=== PATIENT | female | born 1935 | race Caucasian/White ===

== ENCOUNTER 2016-12-17 23:51 | Emergency (ER) | payer OTHER ==
[2016-12-17 22:36] LABS: BASOPHILS 0.3 %; BASOPHILS ABSOLUTE 0.02 10/3/uL (0.0-0.16); EOSINOPHILS 4.3 %; EOSINOPHILS ABSOLUTE 0.27 10/3/uL (0.0-0.53); HEMATOCRIT 33.1 % (36.0-48.0); IMMATURE GRANULOCYTES 0.3 %; IMMATURE GRANULOCYTES ABSOLUTE 0.02 10/3/uL (0.0-0.11); LYMPHOCYTES 26.3 %; LYMPHOCYTES ABSOLUTE 1.66 10/3/uL (0.67-4.30); MANUAL DIFF NO %; MEAN CORPUS HGB CONC 33.2 g/dL (32.0-36.0); MEAN CORPUSCULAR HEMOGLOB 28.3 pg (26.0-34.0); MEAN CORPUSCULAR VOLUME 85.1 fL (80-100); MONOCYTES 7.8 %; MONOCYTES ABSOLUTE 0.49 10/3/uL (0.21-1.20); NEUTROPHILS ABSOLUTE 3.86 10/3/uL (2.02-8.40); PLATELET COUNT 204 10/3/uL (150-400); RBC DISTRIBUTION WIDTH 13.6 % (12.0-16.0); RED CELL COUNT 3.89 10/6/uL (4.0-5.6); WHITE BLOOD CELLS 6.3 10/3/uL (4.5-10.5)
[2016-12-17 22:53] LABS: BUN (BLOOD UREA NITROGEN) 16 MG/DL (6-23); CHEST PAIN PROFILE TAT 0 Hrs 21 Mins; CHLORIDE, SERUM 107 MMOL/L (96-112); GFR AFRICAN AMERICAN 42 ML/MIN (>=60); GFR NON AFRICAN AMERICAN 36 ML/MIN (>=60); GLUCOSE, SERUM 108 MG/DL (60-99); SODIUM, SERUM 141 MMOL/L (135-148); TROPONIN I <0.02 NG/ML (<0.05)
[2016-12-17 22:54] LABS: CO2 (CARBON DIOXIDE) 27 MMOL/L (24-34); CREATININE 1.38 MG/DL (0.55-1.02); POTASSIUM, SERUM 3.8 MMOL/L (3.5-5.3)
[2016-12-17 23:02] LABS: PARTIAL THROMBO TIME 29.8 SEC (22.5-37.2); PROTIME (NOT ORD) 13.2 SEC (12.0-14.5)
[2016-12-17 23:21] LABS: ALBUMIN 3.6 G/DL (3.5-5.0); SGOT(AST) 16 U/L (5-40); SGPT(ALT) 21 U/L (5-65); TOTAL BILIRUBIN 0.2 MG/DL (0-1.2); TOTAL PROTEIN 7.1 G/DL (6.0-8.5)
[2016-12-17 23:22] LABS: ALKALINE PHOSPHATASE 108 U/L (45-117); DIRECT BILIRUBIN < 0.1 MG/DL (0.0-0.4); INDIRECT BILIRUBIN(NOT ORDER) 0.1 MG/DL (0.1-0.9)
[~2016-12-17 23:51] MED LIST: ACET500CAP PO; ACIPHEX PO; ALLEGRA180 PO; AMB10 PO; AMB5 PO; AMILORID5B PO; AMITIZA8 MCG PO; ASAB PO; BACTROINT TOP; BUM1 PO; CITRACAL PO; CLOBETASOL0.051 EX; CLOBETASOL0.051 TOP; COZAAR100 MG PO; CRESTOR10 PO; EXFORGE1 TA3 PO; FLEX PO; FLOVENT110 INH; FOSAMAX70 MG PO; IMDUR30 PO; ISOSORB DIN30 MG PO; KLOR-CON 1010 MEQ PO; KURIC2 % TOP; L40 PO; LACHYDRIN LOT225 GM EX; LEVOTHYROXIN137 MCG PO; LIDODERM T; LIDODERM TOP; LORTAB10 PO; MAGOX4 PO; MAX25 PO; MCZ125 PO; MIRAPEX5 PO; MYCOSCROI TOP; NIZORALCRM TOP; NORCO1 TAB PO; OXYCOD PO; OXYCON10 PO; OXYCON80 PO; PR25 PO; PROAIR HFA INH; PROTONIX PO; REFRESH OPH; SINGULAIR1 PO; SPIRO25 PO; SYN125 PO; TOPROL XL200 MG PO; ULORIC40 MG PO; VITD PO; XANAX1 MG PO; XENADERM60 GM EX; Z10 PO; Z100 PO; Z300 PO; ZETIA PO; ZOL100 PO
[2016-12-18 00:38] LABS: ASCORBIC ACID (UR NOT ORDER) NEG (NEG); BILIRUBIN, URINE NEGATIVE (NEG); ER URINALYSIS TAT 0 Hrs 00 Mins; KETONE, URINE NEGATIVE (NEG); LEUKOCYTE ESTERASE(NOT OR LARGE (NEG); WBC (NOT ORDERED) (RFLEX) 13 (0-5)
[2016-12-18 00:39] LABS: NITRITE (URINE) POS (NEG)
== END 2016-12-18 03:11 | disposition home or self-care (01) ==
LOC: ER 23:51
PROVIDERS: Nurse Practitioner
DX: N39.0 Urinary tract infection, site not specified (principal); R10.13 Epigastric pain; R10.32 Left lower quadrant pain; D64.9 Anemia, unspecified; J44.9 Chronic obstructive pulmonary disease, unspecified; I10 Essential (primary) hypertension; F32.9 Major depressive disorder, single episode, unspecified; F41.9 Anxiety disorder, unspecified; G25.81 Restless legs syndrome; Z86.73 Personal history of transient ischemic attack (TIA), and cerebral infarction without residual deficits; Z90.710 Acquired absence of both cervix and uterus; Z88.0 Allergy status to penicillin; Z88.8 Allergy status to other drugs, medicaments and biological substances; Z88.1 Allergy status to other antibiotic agents; Z91.09 Other allergy status, other than to drugs and biological substances; Z79.899 Other long term (current) drug therapy
CPT/HCPCS: 71010; 74176; 80048; 80076; 81001; 83690; 83735; 84484; 85025; 85610; 85730; 87077; 87086; 87186; 93005; 96374; 99285

== ENCOUNTER 2017-01-27 11:11 | Inpatient (IN) | payer OTHER ==
--- NOTE | ~2017-01-27 | HP ---
History And Physical [place] [id number] [facility] [place] [place]. [address] NAME: MORENA KIRKPATRICK : 39 STATUS : ADM IN [facility]#: [id number] AGE: 81 ADM/REG DATE : 01/27/17 MR#: [id number] REPORT SERV DATE: 01/27/17 DICTATED BY: LALY ALCANTARA DATE: 01/27/17 REPORT STATUS : Draft TRANSCRIBED BY: MODL DATE: 01/27/17 DATE OF ADMISSION: 01/27/2017 CHIEF COMPLAINT: Abdominal pain and weakness, these starting yesterday. HISTORY OF PRESENT ILLNESS: This is a very pleasant 81-year-old female. She does have past medical history significant for hypertension, anemia of chronic disease, history of hypothyroidism, history of gout, hyperlipidemia, anxiety and depression, irritable bowel syndrome, history of restless leg syndrome, also history of COPD and asthma, essential tremor, history of degenerative joint disease, osteoarthritis, vitamin D deficiency, who has been presenting to [facility] with complaints of abdominal pain, sharp starting yesterday. The patient has history of irritable bowel syndrome and she has alternating periods of diarrhea and constipation. She has been denying any chest pain or increasing shortness of breath. No fevers or chills, but she felt weak, she did not feel good, although she did not think she had any constipation, she felt that she has loose bowel movements a couple of days ago. Now she came to [facility] emergency room, she has been evaluated. She underwent a V/Q. The patient denied any chest pain or increasing shortness of breath. No cough. No sputum production. She said that she had frequent urination, but no high amounts. She did not have any nausea or vomiting. No diarrhea or constipation, but her abdominal pain was sometimes sharp and was radiating to the back. She has not had any recent hospitalization nor she has had any sick contacts. She has been evaluated in the emergency room and Hospitalist Service has been asked for admission, further evaluation, and treatment. PAST MEDICAL HISTORY: Significant for hypertension, history of restless legs syndrome, depression, anxiety, hypothyroidism, hyperlipidemia, history of gout, history of degenerative joint disease, osteoarthritis, depression with anxiety, irritable bowel syndrome, essential tremor, degenerative joint disease, osteoarthritis, and vitamin D deficiency, and anemia of chronic disease. PAST SURGICAL HISTORY: Would include cholecystectomy, bilateral knee replacement, back surgery, left foot surgery, right elbow surgery. SOCIAL HISTORY: She denies tobacco, alcohol, or IV drugs. ALLERGIES: SHE IS ALLERGIC TO DICLOFENAC, PENICILLIN, TENORMIN, ADHESIVE TAPE, LEVAQUIN, AND NSAIDS. MEDICATIONS: Listed as her home medications include albuterol, Xanax, amlodipine, valsartan, artificial tears, aspirin, clobetasol p.r.n., Flexeril, Uloric, Flovent, [place], Imdur, Synthroid, Lidoderm patch, magnesium oxide, Toprol-XL, Singulair, Zofran, Protonix, potassium chloride, Mirapex, Phenergan, Crestor, Zoloft, and Zinaderm ointment, as well as Ambien. REVIEW OF SYSTEMS: A 14-point review of systems has been obtained and pertinent positive has been listed into History And Physical [address] [address] NAME: MORENA KIRKPATRICK : 39 STATUS : ADM IN [facility]#: [id number] AGE: 81 ADM/REG DATE : 01/27/17 MR#: [id number] REPORT SERV DATE: 01/27/17 DICTATED BY: LALY ALCANTARA DATE: 01/27/17 REPORT STATUS : Draft TRANSCRIBED BY: SHAYNE DATE: 01/27/17 the history of present illness. Otherwise, negative except those underlying above. PHYSICAL EXAMINATION: VITAL SIGNS: Currently, the patient is afebrile. Blood pressure 101/50, heart rate 66, respiratory rate 22, saturating 98% on room air. GENERAL: She is a pleasant, somewhat anxious well-developed, well-nourished female, in no acute distress. She is alert and oriented x3. She is nonfocal. She follows all her commands appropriately. Slightly dry mucous membranes. HEENT: Shows pupils equal, round, reactive to light. Extraocular movements intact. No JVD. No lymphadenopathy. No thyromegaly appreciated. CHEST EVAL: Shows bilateral air entry. Clear anteroposterior. Decreased breath sounds bibasilarly. No wheezes, crackles, or rhonchi appreciated. CARDIOVASCULAR: She has regular rate and rhythm. S1, S2 positive. No S3, no S4. No murmurs, rubs, or gallops appreciated. ABDOMEN: Soft, slightly tender on the middle and left lower quadrants, but no guarding, no rebound. EXTREMITIES: No clubbing, cyanosis, or edema. NEUROLOGIC: She is alert and oriented x3. She is nonfocal. She follows all her commands appropriately. LABORATORY DATA: Labs from today include sodium 139, potassium 5.4, chloride 106, CO2 of 25, BUN 27, creatinine 2.02, glucose 105. Her total protein is 6.9, albumin is 4, globulin 2.9, also total bilirubin is 0.4, alkaline phosphatase 93, ALT 20, AST 24. Her troponin I is less than 0.02. Her lipase is 184. Her white count is 7.6, hemoglobin 11.6, hematocrit 36.1, and platelets are 245. The patient's INR is 1.1. Her D-dimer was 0.58. Her UA has been positive for large leukocyte esterase 32 cells, few bacteria. Her urine cultures currently are pending. There is a chest x-ray, portable, performed today showing stable appearance, no acute abnormalities that could be appreciated. There is also a V/Q scan performed in the emergency room show normal lung V/Q scan, and there is a CAT scan of the chest, abdomen, and pelvis without contrast showing bilateral lower lobe atelectasis, old granulomatosis disease, stable mild elevation of the right hemidiaphragm, and fecal stasis with constipation diverticulosis, but no diverticulitis. Status post hysterectomy and cholecystectomy and a soft stable tissue in the left hemipelvis likely representing the left ovary and stable lumbosacral surgical changes with chronic T12 compression fracture, appearing unchanged. ASSESSMENT AND PLAN: This is a very pleasant 81-year-old female with: 1. Abdominal pain with fecal stasis. 2. Urinary tract infection. 3. Acute on likely chronic kidney disease. 4. History of hypertension. 5. Hypothyroidism. 6. Hyperlipidemia. 7. History of the irritable bowel syndrome. 8. Depression with anxiety. History And Physical [address] [address] NAME: MORENA KIRKPATRICK : 39 STATUS : ADM IN [facility]#: [id number] AGE: 81 ADM/REG DATE : 01/27/17 MR#: [id number] REPORT SERV DATE: 01/27/17 DICTATED BY: LALY ALCANTARA DATE: 01/27/17 REPORT STATUS : Draft TRANSCRIBED BY: MODDiana DATE: 01/27/17 9. Restless leg syndrome. 10.History of gout. PLAN: 1. The patient with abdominal pain with fecal stasis. We are going to place her on clear liquid diet and advance as tolerated. Bowel regimen including MiraLAX and Colace. Supportive treatment. 2. Acute on chronic kidney disease. We are going to place a Perla catheter. Strict I's and O's. Strict daily weights. We are going to hold her valsartan. We are going to check a renal ultrasound as well. 3. History of anemia likely of chronic disease. We will check a vitamin B12 and folic acid. 4. Hypothyroidism. We will continue her home medications and check a TSH and a free T4. 5. Depression and anxiety. Continue her home medications. 6. Hypertension. Continue her home medications and p.r.n. hydralazine as needed. We are going to provide reasonable pain, nausea control as well as gastrointestinal and deep venous thrombosis prophylaxis. That has been discussed extensively with the patient. All the questions have been answered in full. Further workup and recommendation pending above. 7. It is worthwhile to note that the patient is going to be by Hospitalist Service. CF/SHAYNE Laly Alcantara M.D. / [id number] CC: Leeanna Magana KATRINA V.
--- NOTE | ~2017-01-27 | DS ---
Discharge Summary [facility] [address] [place]. [address] NAME: MORENA KIRKPATRICK : 39 STATUS : ADM IN [facility]#: [id number] AGE: 81 ADM/REG DATE : 01/27/17 MR#: [id number] REPORT SERV DATE: 01/31/17 DICTATED BY: RICHARD SNOW DATE: 01/31/17 REPORT STATUS : Draft TRANSCRIBED BY: MODL DATE: 01/31/17 ADMISSION DATE: 01/27/2017 DISCHARGE DATE: 01/31/2017 FINAL HOSPITAL DIAGNOSES: 1. Abdominal pain, resolved. 2. History of irritable bowel syndrome. 3. History of hypertension. 4. History of restless legs syndrome. 5. History of anxiety, depression. 6. History of hypothyroidism. CONSULTATIONS: None. PROCEDURES: 1. CT abdomen and pelvis done on the first showing fecal stasis, diverticulosis without diverticulitis, prior cholecystectomy and hysterectomy, 7 mm hemorrhagic cyst in the left kidney. CT of the chest done same date showing old granulomatous disease involving the right lung and the right hilar lymph node, stable elevation mild of the right hemidiaphragm, mild bilateral lower lobe and right upper lobe atelectasis, otherwise no acute pathology appreciated. 2. V/Q scan done on the 1st showing normal lung scan without evidence of PE. 3. X-rays of the chest, spine, and ribs, unremarkable. 4. Renal ultrasound done on the 2nd showing kidneys normal size and configuration. No stones or hydronephrosis. Normal echogenicity of the renal parenchyma, subcentimeter benign-appearing simple cysts in both kidneys, Bosniak type 1. CURRENT PHYSICAL FINDINGS AND HPI: Please see dictated H and P by Dr. Crews. In brief, the patient is a 81-year-old female with above medical history, presented with the complaint of abdominal pain and fatigue. Vital signs at the time of admission, BP was 101/50, subsequent blood pressures were averaging 140s over 60s to 70s. T-max was 99.3. No tachycardia. No significant oxygen desats. LABORATORY DATA: Initial BMP showed a creatinine of 2.02, post rehydration 1.37 and 1.08 respectively. CA 19-9 was checked and 18.0. Ferritin was 289. Iron was 106. Troponin was less than 0.02 x2. A1c was 5.5. Initial white count was 7.6, there was no significant leukocytosis on multiple checks. Hemoglobin and hematocrit were 10 and 31 post hydration. D-dimer was slightly elevated at 0.58. Urinalysis showed 32 wbc's, few bacteria. Subsequent urine culture showed multiple organisms, suspect contamination. HOSPITAL COURSE: The patient was admitted for the above complaints. Home medications were reviewed and she was started on DVT prophylaxis with subcu heparin. IV fluids were administered for the mild dehydration. Cultures were sent for the urine. Additional studies including those noted above to investigate her abdominal pain. She was started on Azactam for the UTI. I assumed her care the following morning, she had ruled out by cardiac enzymes. Her abdominal pain continued despite initiation of bowel movements. A CA-19-9 was Discharge Summary [address] [address] NAME: MORENA KIRKPATRICK : 39 STATUS : ADM IN [facility]#: [id number] AGE: 81 ADM/REG DATE : 01/27/17 MR#: [id number] REPORT SERV DATE: 01/31/17 DICTATED BY: RICHARD SNOW DATE: 01/31/17 REPORT STATUS : Draft TRANSCRIBED BY: SHAYNE DATE: 01/31/17 checked. The following day, her creatinine returned to normal. IV fluids were discontinued and her Perla was discontinued. On further investigation, it seemed her pain was more musculoskeletal as it was positional and reproducible. She was started on prednisone, rib series were done which was negative. T-spine was negative. Her renal ultrasound was negative. On the following hospital day, with her urine culture results back and no further symptoms, her Azactam was discontinued. Her prednisone was titrated up. On re-evaluation the following day, her symptoms had mostly resolved. Her pain was much better and she was comfortable discharging home with followup per PCP. She did want to stay on prednisone, the shorter dose possible, so a 40, 20, 10 taper q.3 days was written. Otherwise, [place]forge 10/320, aspirin 81, Uloric 40, Imdur 30, Synthroid 137, Singulair 10, Toprol-XL 25, Protonix 40, Mirapex 0.5, Zoloft 100, ProAir inhaler two puffs t.i.d., Temovate cream, Crestor 10, Flexeril 5 b.i.d., Flovent, hydrocodone 10/325, potassium 10 b.i.d., Lidoderm, magnesium oxide 400 b.i.d., Zofran, Phenergan, Xanax 1 mg, Xenaderm ointment, Ambien 5, and refresh eye drops. She will schedule follow up with her PCP or coverage in the next several weeks and if her symptoms persist. On the date of discharge, she had no signs or symptoms of DVT in her lower extremities. Her calves were colorful, nontender, nondistended. No erythema. Her D-dimer was felt a false positive. DICTATED BY: Richard Snow M.D. TLF/SHAYNE Richard Snow M.D. / [id number] CC: Leeanna Magana
[2017-01-27 11:32] LABS: BASOPHILS 0.4 %; BASOPHILS ABSOLUTE 0.03 10/3/uL (0.0-0.16); EOSINOPHILS ABSOLUTE 0.38 10/3/uL (0.0-0.53); ER CBC TAT 0 Hrs 08 Mins; HEMATOCRIT 36.1 % (36.0-48.0); HEMOGLOBIN 11.6 g/dL (12.0-16.0); IMMATURE GRANULOCYTES 0.5 %; IMMATURE GRANULOCYTES ABSOLUTE 0.04 10/3/uL (0.0-0.11); LYMPHOCYTES 19.9 %; LYMPHOCYTES ABSOLUTE 1.52 10/3/uL (0.67-4.30); MANUAL DIFF NO %; MEAN CORPUS HGB CONC 32.1 g/dL (32.0-36.0); MEAN PLATELET VOLUME 10.5 fL (9.2-13.0); MONOCYTES 8.4 %; MONOCYTES ABSOLUTE 0.64 10/3/uL (0.21-1.20); NEUTROPHILS 65.8 %; NEUTROPHILS ABSOLUTE 5.03 10/3/uL (2.02-8.40); PLATELET COUNT 245 10/3/uL (150-400); RBC DISTRIBUTION WIDTH 13.4 % (12.0-16.0); RED CELL COUNT 4.15 10/6/uL (4.0-5.6); WHITE BLOOD CELLS 7.6 10/3/uL (4.5-10.5)
[2017-01-27 11:38] LABS: INTERNATIONAL NORMAL RATI 1.1 UNITS (-)
[2017-01-27 11:39] LABS: PARTIAL THROMBO TIME 29.6 SEC (22.5-37.2)
[2017-01-27 11:41] LABS: D-DIMER QUANTITATIVE 0.58 ug/mLFEU (< 0.50)
[2017-01-27 12:23] LABS: A/G RATIO 1.4 (0.7-1.9); CALCIUM, SERUM 9.2 MG/DL (8.5-10.4); CHLORIDE, SERUM 106 MMOL/L (96-112); CO2 (CARBON DIOXIDE) 25 MMOL/L (24-34); GLOBULIN 2.9 G/DL (2.5-4.1); GLUCOSE, SERUM 105 MG/DL (60-99); SGPT(ALT) 20 U/L (5-65); SODIUM, SERUM 139 MMOL/L (135-148); TOTAL BILIRUBIN 0.4 MG/DL (0-1.2); TOTAL PROTEIN 6.9 G/DL (6.0-8.5); TROPONIN I <0.02 NG/ML (<0.05)
[2017-01-27 12:25] LABS: ALKALINE PHOSPHATASE 93 U/L (45-117); BUN (BLOOD UREA NITROGEN) 27 MG/DL (6-23); CREATININE 2.02 MG/DL (0.55-1.02); GFR AFRICAN AMERICAN 27 ML/MIN (>=60); GFR NON AFRICAN AMERICAN 23 ML/MIN (>=60); POTASSIUM, SERUM 5.4 MMOL/L (3.5-5.3); SGOT(AST) 24 U/L (5-40)
[2017-01-27 13:53] LABS: ASCORBIC ACID (UR NOT ORDER) NEG (NEG); BILIRUBIN, URINE NEGATIVE (NEG); ER URINALYSIS TAT 0 Hrs 11 Mins; KETONE, URINE NEGATIVE (NEG); LEUKOCYTE ESTERASE(NOT OR LARGE (NEG); WBC (NOT ORDERED) (RFLEX) 32 (0-5)
[2017-01-27 13:54] LABS: NITRITE (URINE) NEG (NEG)
[2017-01-27] MEDS ORDERED: PROAIR HFA INH (18:04)
[2017-01-27] MEDS ORDERED: EXFORGE1 TA3 PO (18:05)
[2017-01-27] MEDS ORDERED: ASAB PO (18:05)
[2017-01-27] MEDS ORDERED: CRESTOR10 PO (18:06)
[2017-01-27] MEDS ORDERED: TEMOVATE CREAM30 GM TOP (18:06)
[2017-01-27] MEDS ORDERED: FLOVENT110 INH (18:10)
[2017-01-27] MEDS ORDERED: FLEXERIL5 MG PO (18:10)
[2017-01-27] MEDS ORDERED: IMDUR30 PO (18:11)
[2017-01-27] MEDS ORDERED: NORCO1 TAB PO (18:11)
[2017-01-27] MEDS ORDERED: SYNTHROID137 MCG PO (18:12)
[2017-01-27] MEDS ORDERED: KLOR-CON 1010 MEQ PO (18:12)
[2017-01-27] MEDS ORDERED: LIDODERM TOP (18:13)
[2017-01-27] MEDS ORDERED: TOPXL25 PO (18:14)
[2017-01-27] MEDS ORDERED: PROTONIX PO (18:14)
[2017-01-27] MEDS ORDERED: MAGOX4 PO (18:14)
[2017-01-27] MEDS ORDERED: MIRAPEX5 PO (18:15)
[2017-01-27] MEDS ORDERED: ZOFRAN ODT4 MG PO (18:15)
[2017-01-27] MEDS ORDERED: PR25 PO (18:15)
[2017-01-27] MEDS ORDERED: ULORIC40 MG PO (18:16)
[2017-01-27] MEDS ORDERED: ZOL100 PO (18:16)
[2017-01-27] MEDS ORDERED: SINGULAIR1 PO (18:16)
[2017-01-27] MEDS ORDERED: XANAX1 MG PO (18:18)
[2017-01-27] MEDS ORDERED: XENADERM OINTMENT TOP (18:19)
[2017-01-27] MEDS ORDERED: AMB5 PO (18:19)
[2017-01-27] MEDS ORDERED: REFRESH OPH (18:21)
[2017-01-27 23:45] LABS: B NATRIURETIC PEPTIDE (BNP) 80.9 PG/ML (< 100.0)
[2017-01-28 00:03] LABS: ALCOHOL < 10 MG/DL (0); FERRITIN 289 NG/ML (8-252); FOLATE 15.4 NG/ML (>5.2); SALICYLATE < 1.7 MG/DL (-)
[2017-01-28 00:04] LABS: IRON, SERUM 106 MCG/DL (35-150)
[2017-01-28 00:05] LABS: ACETAMINOPHEN LEVEL (TYLENOL) < 2.0 MCG/ML (10.0-20.0); IRON BINDING CAPACITY 358 MCG/DL (225-410)
[2017-01-28 05:08] LABS: BASOPHILS 0.4 %; BASOPHILS ABSOLUTE 0.02 10/3/uL (0.0-0.16); EOSINOPHILS 6.7 %; IMMATURE GRANULOCYTES 0.2 %; IMMATURE GRANULOCYTES ABSOLUTE 0.01 10/3/uL (0.0-0.11); LYMPHOCYTES 28.3 %; LYMPHOCYTES ABSOLUTE 1.27 10/3/uL (0.67-4.30); MEAN CORPUS HGB CONC 32.4 g/dL (32.0-36.0); MEAN CORPUSCULAR HEMOGLOB 27.9 pg (26.0-34.0); MEAN CORPUSCULAR VOLUME 86.3 fL (80-100); MEAN PLATELET VOLUME 10.2 fL (9.2-13.0); MONOCYTES 8.3 %; MONOCYTES ABSOLUTE 0.37 10/3/uL (0.21-1.20); NEUTROPHILS 56.1 %; NEUTROPHILS ABSOLUTE 2.51 10/3/uL (2.02-8.40); PLATELET COUNT 175 10/3/uL (150-400); RBC DISTRIBUTION WIDTH 13.1 % (12.0-16.0); RED CELL COUNT 3.58 10/6/uL (4.0-5.6)
[2017-01-28 05:09] LABS: HEMATOCRIT 30.9 % (36.0-48.0); MANUAL DIFF NO %; WHITE BLOOD CELLS 4.5 10/3/uL (4.5-10.5)
[2017-01-28 05:24] LABS: A/G RATIO 1.2 (0.7-1.9); ALBUMIN 3.3 G/DL (3.5-5.0); ALKALINE PHOSPHATASE 97 U/L (45-117); CALCIUM, SERUM 9.2 MG/DL (8.5-10.4); CHLORIDE, SERUM 109 MMOL/L (96-112); CO2 (CARBON DIOXIDE) 25 MMOL/L (24-34); GFR AFRICAN AMERICAN 42 ML/MIN (>=60); GFR NON AFRICAN AMERICAN 37 ML/MIN (>=60); GLOBULIN 2.8 G/DL (2.5-4.1); GLUCOSE, SERUM 92 MG/DL (60-99); POTASSIUM, SERUM 4.7 MMOL/L (3.5-5.3); SGOT(AST) 90 U/L (5-40); SGPT(ALT) 69 U/L (5-65); SODIUM, SERUM 141 MMOL/L (135-148); TOTAL BILIRUBIN 0.3 MG/DL (0-1.2); TOTAL PROTEIN 6.1 G/DL (6.0-8.5); TROPONIN I <0.02 NG/ML (<0.05)
[2017-01-28 05:27] LABS: BUN (BLOOD UREA NITROGEN) 22 MG/DL (6-23); CREATININE 1.37 MG/DL (0.55-1.02)
[2017-01-28 14:17] LABS: GLYCOHEMOGLOBIN (HbA1c) 5.5 % (4.7-6.1)
[2017-01-29 06:58] LABS: A/G RATIO 1.1 (0.7-1.9); ALBUMIN 3.2 G/DL (3.5-5.0); ALKALINE PHOSPHATASE 84 U/L (45-117); BUN (BLOOD UREA NITROGEN) 21 MG/DL (6-23); CALCIUM, SERUM 8.9 MG/DL (8.5-10.4); CHLORIDE, SERUM 110 MMOL/L (96-112); CO2 (CARBON DIOXIDE) 24 MMOL/L (24-34); CREATININE 1.08 MG/DL (0.55-1.02); GFR AFRICAN AMERICAN 57 ML/MIN (>=60); GFR NON AFRICAN AMERICAN 49 ML/MIN (>=60); GLOBULIN 2.9 G/DL (2.5-4.1); GLUCOSE, SERUM 88 MG/DL (60-99); POTASSIUM, SERUM 4.3 MMOL/L (3.5-5.3); SGOT(AST) 38 U/L (5-40); SGPT(ALT) 47 U/L (5-65); SODIUM, SERUM 139 MMOL/L (135-148); TOTAL BILIRUBIN 0.3 MG/DL (0-1.2); TOTAL PROTEIN 6.1 G/DL (6.0-8.5)
[2017-01-31] MEDS ORDERED: P20 (13:20)
== END 2017-01-31 17:02 | disposition home or self-care (01) | DRG 683 ==
LOC: ER 11:11 → 2SO 19:55
PROVIDERS: Emergency Medicine; Internal Medicine
DX: N17.9 Acute kidney failure, unspecified (principal); N39.0 Urinary tract infection, site not specified; J44.9 Chronic obstructive pulmonary disease, unspecified; E86.0 Dehydration; N28.1 Cyst of kidney, acquired; D63.8 Anemia in other chronic diseases classified elsewhere; E03.9 Hypothyroidism, unspecified; M10.9 Gout, unspecified; E78.5 Hyperlipidemia, unspecified; N18.9 Chronic kidney disease, unspecified; I12.9 Hypertensive chronic kidney disease with stage 1 through stage 4 chronic kidney disease, or unspecified chronic kidney disease; F41.9 Anxiety disorder, unspecified; K59.8 Other specified functional intestinal disorders; F32.9 Major depressive disorder, single episode, unspecified; K58.9 Irritable bowel syndrome, unspecified; K57.90 Diverticulosis of intestine, part unspecified, without perforation or abscess without bleeding; G25.81 Restless legs syndrome; J45.909 Unspecified asthma, uncomplicated; G25.0 Essential tremor; M19.90 Unspecified osteoarthritis, unspecified site; E55.9 Vitamin D deficiency, unspecified; Z96.653 Presence of artificial knee joint, bilateral; Z88.0 Allergy status to penicillin; Z88.8 Allergy status to other drugs, medicaments and biological substances; Z88.1 Allergy status to other antibiotic agents
CPT/HCPCS: 71010; 71100-LT; 71250; 72072; 74176; 76775; 78582; 80053; 80307; 81001; 82140; 82570; 82607; 82728; 82746; 83036; 83540; 83550; 83615; 83690; 83735; 83880; 83935; 84300; 84484; 85025; 85379; 85610; 85730; 86301; 87086; 93005; 94640; 96374; 99285; A9270-GY; A9540; A9567